=== PATIENT | female | born 1980 | race Two or more races ===

== ENCOUNTER 2016-04-26 15:20 | Outpatient (CLI) | payer MEDICAID | END 2016-04-26 15:21 | disposition home or self-care (01) | DX: R10.2 Pelvic and perineal pain (principal) ==

== ENCOUNTER 2016-10-07 09:24 | Outpatient (CLI) | payer MEDICAID ==
[2016-10-07 14:25] LABS: ALBUMIN/GLOBULIN RATIO 1.3 (1.0-2.2); BILIRUBIN,TOTAL 0.4 mg/dL (0.2-1.0); CALCIUM 9.2 mg/dL (8.5-10.3); CREATININE 0.8 mg/dL (0.4-1.0); POTASSIUM 3.8 mmol/L (3.5-5.0); TOTAL PROTEIN 7.6 g/dL (6.7-8.2)
== END 2016-10-07 09:25 | disposition home or self-care (01) ==
LOC: LAB.N 09:24
PROVIDERS: ATTEND Nurse Practitioner Gerontology
DX: R10.9 Unspecified abdominal pain (principal)
CPT/HCPCS: 36415; 80053

== ENCOUNTER 2016-10-11 10:14 | Outpatient (CLI) | payer MEDICAID ==
[2016-10-11 13:52] LABS: ALBUMIN/GLOBULIN RATIO 1.3 (1.0-2.2); BILIRUBIN,TOTAL 0.6 mg/dL (0.2-1.0); CALCIUM 9.2 mg/dL (8.5-10.3); CREATININE 0.7 mg/dL (0.4-1.0); POTASSIUM 3.4 mmol/L (3.5-5.0); TOTAL PROTEIN 7.6 g/dL (6.7-8.2)
== END 2016-10-11 10:15 | disposition home or self-care (01) ==
LOC: LAB.N 10:14
PROVIDERS: ATTEND Nurse Practitioner Gerontology
DX: R10.9 Unspecified abdominal pain (principal)
CPT/HCPCS: 36415; 80053; 82525

== ENCOUNTER 2016-10-13 08:00 | Outpatient (CLI) | payer MEDICAID | END 2016-10-13 08:01 | disposition home or self-care (01) | LOC: LAB.R 08:00 | PROVIDERS: ATTEND Nurse Practitioner Gerontology | DX: R10.9 Unspecified abdominal pain (principal) | CPT/HCPCS: 81599; 82525 ==

== ENCOUNTER 2016-11-12 01:22 | Emergency (ER) | payer MEDICAID ==
--- NOTE | 2016-11-12 02:10 | XRAY Preliminary Report ---
Exam: XR Chest 2 View PA/LAT IMPRESSION: 1. No acute abnormality seen in the chest. [facility] SITE ID: [id number]
--- NOTE | 2016-11-12 02:13 | XRAY Report ---
EXAM: CHEST RADIOGRAPHY EXAM DATE: 11/12/2016 01:53 AM. CLINICAL HISTORY: Chest pain and shortness of breath. COMPARISON: 11/27/2015. TECHNIQUE: 2 views. FINDINGS: Lungs/Pleura: No alveolar consolidation or pleural effusion. No pneumothorax. Mediastinum: Heart and mediastinal contours are unremarkable. Other: None. IMPRESSION: 1. No acute abnormality seen in the chest. [facility] Referring Provider Line: [phone] SITE ID: [id number]
--- NOTE | 2016-11-12 02:42 | ED Physician Documentation ---
PD HPI CHEST PAIN - Stated complaint Stated Complaint: CHEST PX - Chief complaint Chief Complaint: Resp - History obtained from History obtained from: Patient - History of Present Illness Timing - onset: Yesterday Timing - onset during: Rest Timing - details: Gradual onset, Intermittant Quality: Aching, Sharp Location: Right chest Radiation: Back Worsened by: Palpation, Position. No: Exertion, Inspiration Associated symptoms: Shortness of air. No: Diaphoresis, Nausea, Vomiting, Feeling faint / dizzy, General Weakness, Palpitations Similar symptoms before: Work up / diagnostics Recently seen: Not recently seen - Additional information Additional information: Patient is a 36 year old female with a history of anxiety who is presenting to the emergency department for chest pain. patient states that the pain started yesterday in her right chest. patient states that it radiates back to her right shoulder. Patient states that it gets better with a deep breath, and gets worse in certain positions. patient denies leg swelling, hormone use, or history of blood clots in the past. Review of Systems Constitutional: denies: Fever, Chills Eyes: denies: Decreased vision, Photophobia Ears: denies: Ear pain, Drainage/discharge Nose: denies: Rhinorrhea / runny nose, Congestion Throat: denies: Dental pain / toothache Cardiac: reports: Chest pain / pressure. denies: Palpitations, Pedal edema, Calf pain Respiratory: denies: Dyspnea, Cough, Wheezing GI: denies: Nausea, Vomiting : denies: Dysuria Musculoskeletal: reports: Back pain. 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 : None HEENT: None Psych: Depression, Eating disorder, Other Musculoskeletal: None Derm: None - Past Surgical History Past Surgical History: Yes General: Cholecystectomy, Appendectomy /STOREKEEPER ENGINEERING: section - Present Medications Home Medications: Ambulatory Orders Medication Instructions Recorded Confirmed Albuterol Sulfate [Proair Hfa 1 mcg INH Q6H 11/25/15 03/09/16 Inhaler] Clonidine 0.1 mg PO DAILY 11/25/15 03/09/16 Wellbutrin 300 mg PO DAILY 11/25/15 03/09/16 Hyoscyamine Sulfate [Levsin-Sl] 0.125 mg SL TID #14 tab.subl 03/09/16 Sulfamethoxazole/Trimethoprim 1 each PO BID 7 Days 03/09/16 [Bactrim Ds Tablet] - Allergies Allergies/Adverse Reactions: Allergies Allergy/AdvReac Type Severity Reaction Status Date / Time No Known Drug Allergies Allergy Verified 03/09/16 14:53 - Social History Does the pt smoke?: No Smoking Status: Never smoker Does the pt drink ETOH?: No Does the pt have substance abuse?: No - Immunizations Immunizations are current?: Yes - POLST Patient has POLST: No PD ED PE NORMAL - Vitals Vital signs reviewed: Yes - General General: Alert and oriented X 3, Well developed/nourished - HEENT HEENT: Atraumatic, PERRL - Neck Neck: Supple, no meningeal sign - Cardiac Cardiac: RRR - Respiratory Respiratory: Clear bilaterally - Abdomen Abdomen: Soft, Non tender, Non distended - Derm Derm: Normal color, Warm and dry, No rash - Extremities Extremities: No deformity, No calf tenderness / cord - Neuro Neuro: Alert and oriented X 3, No motor deficit, No sensory deficit, Normal speech PD ED PE EXPANDED - General General: Anxious - Cardiac Cardiac: Chest wall TTP (right chest area) Results - Vitals Vitals: Vital Signs - 24 hr 11/12/16 11/12/16 01:25 01:32 Temperature 37 C Heart Rate 105 H 95 Respiratory 18 Rate Blood Pressure 126/83 H O2 Saturation 98 Oxygen O2 Source Room air - EKG (time done) 0159 Rate: Rate (enter#) (85) Rhythm: NSR [place]: Normal Intervals: Normal [place] Ischemia: Q waves Compare to prior EKG: Unchanged from prior EKG - Labs Labs: Laboratory Tests 11/12/16 02:09 Troponin I < 0.04 - Rads (name of study) chest x-ray Radiology: Final report received (no acute abnormality) PD MEDICAL DECISION MAKING - ED course Complexity details: reviewed old records, reviewed results, re-evaluated patient , considered differential, d/w patient ED course: Patient was seen and examined at bedside. patient was anxious upon presentation , but was able to relax and calm down. ekg was performed and was unchanged from previous. chest x-ray and troponin were negative. Patient had a heart score of 0, and a perc score of 0. Patient's pain was unlikely cardio or pulmonary in origin. Patient required no further work up and was stable for discharge with outpatient follow up. Departure - Departure Disposition: 01 Home, Self Care Clinical Impression: Atypical chest pain Condition: Good Instructions: ED Chest Pain NonCardiac Follow-Up: Rhiannon Kingsley ARNP [Primary Care Provider] - Within 1 week Comments: Your diagnostic today were within normal limits indicating that it is unlikely cardiac in nature. It is more likely musculoskeletal. You can take motrin or tylenol as needed for pain. You should follow up with your pmd if your symptoms persist. You can return to the emergency department at any time for new, worsening or uncontrollable symptoms.
[2016-11-12 02:53] VITALS: BP 105/70
== END 2016-11-12 03:01 | disposition home or self-care (01) ==
LOC: ED 01:22
DX: R07.89 Other chest pain (principal); F41.9 Anxiety disorder, unspecified; J45.909 Unspecified asthma, uncomplicated
CPT/HCPCS: 36415; 71020; 84484; 93005; 99283; 99285

== ENCOUNTER 2018-04-19 17:34 | Emergency (ER) | payer BC, MEDICAID ==
[2018-04-19] MEDS ORDERED: HYDROmorphone 1 MG/ML CARPUJECT IM STA ×2 (17:46→18:40)
--- NOTE | 2018-04-19 17:47 | ED Physician Documentation ---
PD HPI BACK INJURY - Stated complaint Stated Complaint: BACK PX - History obtained from History obtained from: Patient - History of Present Illness Location: Right (She has right-sided low back pain for the last 4-5 days with numbness of the right lateral thigh and lower leg. She denies saddle anesthesia, bowel or bladder incontinence, or fevers. She is never had this before. There was no trauma. 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: section - Present Medications Home Medications: Ambulatory Orders Medication Instructions Recorded Confirmed Albuterol Sulfate [Proair Hfa 1 mcg INH Q6H 11/25/15 03/09/16 Inhaler] Clonidine 0.1 mg PO DAILY 11/25/15 03/09/16 Wellbutrin 300 mg PO DAILY 11/25/15 03/09/16 Hyoscyamine Sulfate [Levsin-Sl] 0.125 mg SL TID #14 tab.subl 03/09/16 Sulfamethoxazole/Trimethoprim 1 each PO BID 7 Days tablet 03/09/16 [Bactrim Ds Tablet] Oxycodone HCl/Acetaminophen 1 - 2 each PO Q6H PRN #14 tablet 04/19/18 [Percocet 5-325 mg Tablet] predniSONE [Deltasone] 20 mg PO [id number] #21 tab 04/19/18 - Allergies Allergies/Adverse Reactions: Allergies Allergy/AdvReac Type Severity Reaction Status Date / Time No Known Drug Allergies Allergy Verified 03/09/16 14:53 - Social History Does the pt smoke?: No Smoking Status: Never smoker Does the pt drink ETOH?: No Does the pt have substance abuse?: No - Immunizations Immunizations are current?: Yes - POLST Patient has POLST: No PD ED PE NORMAL - Vitals Vital signs reviewed: Yes - General General: Alert and oriented X 3, Other (uncomfortable) - Abdomen Abdomen: Soft, Non tender - Back Back: No spinal TTP, Other (Tender in the right sciatic notch with diminished sensation in the right L4/L5 distribution without significant diminution of the patellar reflexes.) - Derm Derm: Normal color, Warm and dry - Neuro Neuro: Alert and oriented X 3, Normal speech Results - Vitals Vitals: Oxygen O2 Source Room air PD MEDICAL DECISION MAKING - ED course ED course: This is a 37-year-old woman with an acute sciatica that clinically is probably related to a right L4/L5 disc herniation. The patient was counseled as to the diagnosis and need for follow-up. I counseled the patient with regard to signs and symptoms that would necessitate an urgent reevaluation in the emergency department. They understand they are welcome to return at any time if worse or if not improving as expected. This document was made in part using voice recognition software. While efforts are made to proofread this documents, sound alike and grammatical errors may occur. Departure - Departure Disposition: 01 Home, Self Care Clinical Impression: Sciatica Qualifiers: Laterality: right Qualified Code(s): M54.31 - Sciatica, right side Condition: Good Record reviewed to determine appropriate education?: Yes Instructions: ED Sciatica Prescriptions: Oxycodone HCl/Acetaminophen [Percocet 5-325 mg Tablet] 1 - 2 each PO Q6H PRN #14 tablet PRN Reason: pain predniSONE [Deltasone] 20 mg PO [id number] #21 tab Comments: Call your doctor to arrange a follow-up appointment, make the next available appointment. In the interim, return anytime if worse or if new symptoms develop. Do not drink or drive while taking narcotic pain medication. Note that many narcotic pain relievers also contain Tylenol/acetaminophen. Please ensure that your total dose of acetaminophen from all sources does not exceed 3 g (3000 mg) per day. You may get constipated while on this medication. Take a stool softener such as Colace twice a day while you are on it. Also add an syai-hnd-sbqxikx laxative such as senna or MiraLAX on any day that you do not have a bowel movement. If you received a narcotic pain medication or sedative while in the emergency department, do not drive for the next 24 hours.
[2018-04-19 18:18] VITALS: BP 130/102
[2018-04-19] MEDS ORDERED: KETOROLAC 60 MG/2 ML VIAL IM STA (18:40)
== END 2018-04-19 19:15 | disposition home or self-care (01) ==
LOC: ED 17:34
DX: M54.41 Lumbago with sciatica, right side (principal)
CPT/HCPCS: 96372; 99283

== ENCOUNTER 2018-04-22 10:43 | Emergency (ER) | payer BC ==
[2018-04-22] MEDS ORDERED: KETOROLAC 30 MG/ML VIAL IVP STA (11:16)
[2018-04-22] MEDS ORDERED: HYDROmorphone 1 MG/ML CARPUJECT IVP STA ×2 (11:16→13:48)
[2018-04-22] MEDS ORDERED: DEXAMETHASONE 10 MG/ML VIAL IVP STA (11:17)
--- NOTE | 2018-04-22 11:24 | ED Physician Documentation ---
PD HPI BACK PAIN - Stated complaint Stated Complaint: RT LEG PX - Chief complaint Chief Complaint: Back Pain - History obtained from History obtained from: Patient - History of Present Illness Timing - onset: How many days ago (5) Timing - duration: Days (5) Timing - details: Gradual onset Pain level max: 10 Pain level now: 10 Location: Lower, Right Quality: Pain, Spasm Associated symptoms: Numbness (tingling to the R LE). No: Fever, Weakness, Incontinent of urine, Unable to urinate, Hematuria, Incontinent of stool Improves with: Rest Worsened by: Movement Contributing factors: No: Lifting, Twisting, Trauma, Anticoagulated, Cancer, IVDA, Out of meds Similar symptoms before: Has not had sx before Recently seen: Emergency Dept ( and urgent care for same) Review of Systems Constitutional: denies: Fever, Chills Cardiac: denies: Chest pain / pressure Respiratory: denies: Cough GI: denies: Vomiting, Diarrhea : denies: Now EGA Skin: denies: Rash Neurologic: denies: Focal weakness PD PAST MEDICAL HISTORY - Past Medical History Past Medical History: Yes Cardiovascular: None Respiratory: Asthma Endocrine/Autoimmune: None GI: None 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 : None HEENT: None Psych: Depression, Eating disorder, Other Musculoskeletal: None Derm: None - Past Surgical History Past Surgical History: Yes General: Cholecystectomy, Appendectomy /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: section - Present Medications Home Medications: Ambulatory Orders Medication Instructions Recorded Confirmed Lisdexamfetamine Dimesylate 0 mg 04/19/18 [Vyvanse] Oxycodone HCl/Acetaminophen 1 - 2 each PO Q6H PRN #14 tablet 04/19/18 [Percocet 5-325 mg Tablet] predniSONE [Deltasone] 20 mg PO [id number] #21 tab 04/19/18 Gabapentin [Neurontin] 300 mg PO TID 04/22/18 04/22/18 HYDROmorphone [Dilaudid] 2 - 4 mg PO Q4H PRN #14 tablet 04/22/18 Meloxicam [Mobic] 15 mg PO DAILY PRN #20 tablet 04/22/18 diazePAM [Valium] 5 - 10 mg PO TID PRN #20 tablet 04/22/18 tiZANidine [Zanaflex] 4 mg 04/22/18 - Allergies Allergies/Adverse Reactions: Allergies Allergy/AdvReac Type Severity Reaction Status Date / Time No Known Drug Allergies Allergy Verified 04/22/18 10:48 - Social History Does the pt smoke?: No Smoking Status: Never smoker Does the pt drink ETOH?: No Does the pt have substance abuse?: No - Immunizations Immunizations are current?: Yes - POLST Patient has POLST: No PD ED PE NORMAL - Vitals Vital signs reviewed: Yes - General General: Alert and oriented X 3, No acute distress - HEENT HEENT: Moist mucous membranes - Neck Neck: Supple, no meningeal sign - Cardiac Cardiac: RRR, Strong equal pulses - Respiratory Respiratory: No respiratory distress, Clear bilaterally - Abdomen Abdomen: Soft, Non tender, Non distended - Back Back: No spinal TTP, Other (No midline tenderness to palpation or percussion. She is tender over the right sacroiliac joint) - Derm Derm: Warm and dry - Extremities Extremities: No deformity, Normal ROM s pain, Other (Normal bilateral lower extremity patellar and ankle jerk reflexes. Normal great toe extension bilaterally. no saddle anesthesia) - Neuro Neuro: Alert and oriented X 3, No motor deficit, Other (Mild decreased sensation along the lateral and posterior aspect of the right leg. No saddle anesthesia) - Psych Psych: Normal mood, Normal affect Results - Vitals Vitals: Vital Signs - 24 hr 04/22/18 04/22/18 04/22/18 10:46 11:55 13:47 Temperature 36.4 C L Heart Rate 98 87 93 Respiratory 20 16 18 Rate Blood Pressure 127/75 115/84 H 128/97 H O2 Saturation 99 98 99 Oxygen O2 Source Room air - Rads (name of study) Lumbar spine x-ray Radiology: Prelim report reviewed, EMP read contemporaneously, See rad report (S1 is a transitional segment. L5-S1 facet neuropathic change. ) PD MEDICAL DECISION MAKING - ED course Complexity details: reviewed results, re-evaluated patient, considered differential (No cauda equina, no spinal epidural abscess, no fracture, no aortic dissection or evidence of aneursym rupture), d/w patient, d/w family ED course: 37-year-old female with right low back pain, apparently secondary to facet neuropathic change. Pain well controlled in the emergency department. Given steroids as she had not taken her prednisone at home. Also given a dose of Valium and Dilaudid. Able to ambulate in the emergency department. We will continue her steroid taper at home as well as prescribe anti-inflammatories and will change her from oxycodone to hydromorphone. We will have her follow-up with her doctor for further care and likely referral to spine/pain specialist. Would likely benefit from spinal injections. Patient counseled regarding signs and symptoms for which I believe and urgent re-evaluation would be necessary. Patient with good understanding of and agreement to plan and is comfortable going home at this time This document was made in part using voice recognition software. While efforts are made to proofread this document, sound alike and grammatical errors may occur. Departure - Departure Disposition: Home, Self Care Clinical Impression: Facet arthropathy, lumbar Sciatica Qualifiers: Laterality: right Qualified Code(s): M54.31 - Sciatica, right side Condition: Good Instructions: Injection Facet Joint, ED Sciatica Follow-Up: Rhiannon Kingsley ARNP [Primary Care Provider] - Within 1 week Prescriptions: diazePAM [Valium] 5 - 10 mg PO TID PRN #20 tablet PRN Reason: Spasms HYDROmorphone [Dilaudid] 2 - 4 mg PO Q4H PRN #14 tablet PRN Reason: back pain Meloxicam [Mobic] 15 mg PO DAILY PRN #20 tablet PRN Reason: pain Comments: Continue the gabapentin and prednisone at home. Return if you worsen. Follow- up with your doctor for further care. Do not drink alcohol or drive while on narcotic pain medicine. Note that many narcotic pain relievers also contain tylenol/acetaminophen. Please ensure that your total dose of acetaminophen from all sources does not exceed 3 grams (3000mg) per day. You may constipated on this medication, take a stool softener such as "Colace" twice a day while you are on it. Also recommend a ddzl-gxd-qsrgqnf laxative such as senna or MiraLAX any day that you do not have a bowel movement. If you received narcotic pain medication in the emergency department, do not drive or operate machinery for the next 24 hours. Forms: Activity restrictions Discharge Date/Time: 04/22/18 14:20
[2018-04-22] MEDS ORDERED: diazePAM 5 MG TABLET PO STA (12:07)
--- NOTE | 2018-04-22 13:20 | XRAY Report ---
Reason: low back pain Procedure Date: 04/22/2018 Accession Number: [id number] / [id number] Procedure: XR - Lumbar Spine 2 View CPT Code: FULL RESULT: EXAM: LUMBOSACRAL SPINE RADIOGRAPHY EXAM DATE: 04/22/2018 01:07 PM. CLINICAL HISTORY: Low back pain. COMPARISONS: None. TECHNIQUE: 3 views. FINDINGS: Alignment: Normal. No spondylolisthesis or scoliosis. Bones: Five hfp-vgw-afhubid lumbar vertebral bodies are present. No fractures or bone lesions. S1 is a transitional segment. Disks: Normal. Disk heights are maintained. Facets: L2-S1 facet arthropathic change. Sacroiliac Joints: Unremarkable. Soft Tissues: Normal. The visualized bowel gas pattern is normal. IMPRESSION: 1. S1 is a transitional segment. L2-S1 facet neuropathic change. [facility]
[2018-04-22 13:49] VITALS: BP 128/97
== END 2018-04-22 14:20 | disposition home or self-care (01) ==
LOC: ED 10:43
DX: M12.88 Other specific arthropathies, not elsewhere classified, other specified site (principal); M54.31 Sciatica, right side
CPT/HCPCS: 72100; 96374; 96376; 99283; A9270; J1170

== ENCOUNTER 2022-01-04 14:29 | Outpatient (CLI) | payer MEDICAID ==
[2022-01-04 12:56] LABS: BILIRUBIN,URINE NEGATIVE (NEGATIVE); GLUCOSE, URINE (UA) NEGATIVE (NEGATIVE); KETONES,URINE (UA) NEGATIVE (NEGATIVE); LEUKOCYTE ESTERASE, URINE NEGATIVE (NEGATIVE); NITRITE,URINE NEGATIVE (NEGATIVE); OCCULT BLOOD,URINE SMALL (NEGATIVE); PH,URINE 6.5 PH (5.0-7.5); PROTEIN,URINE NEGATIVE (NEGATIVE); UROBILINOGEN,URINE 0.2 (NORMAL) E.U./dL (NORMAL)
[2022-01-04 12:59] LABS: CLARITY,URINE HAZY (CLEAR)
[2022-01-04 13:06] LABS: BACTERIA,URINE Few /HPF (None Seen); RBC,URINE 0-5 /HPF (0-5); SQUAMOUS EPITHELIAL CELL,UR MOD Squamous (<= Few); WBC,URINE 0-3 /HPF (0-5)
--- NOTE | 2022-01-04 17:53 | CT Report ---
PROCEDURE: Abdomen/Pelvis WO INDICATIONS: RIGHT FLANK PAIN TECHNIQUE: Noncontrast 5 mm thick sections acquired from the diaphragms to the symphysis. 5 mm coronal and sagi ttal reformats were then performed. For radiation dose reduction, the following was used: automated exposure control, adjustment of mA and/or kV according to patient size. COMPARISON: None. FINDINGS: Image quality: Excellent. ABDOMEN: Lung bases: Lung bases are clear. Heart size is normal. Solid organs: Liver and spleen are normal in size. Gallbladder is absent. Pancreas is normal in co ntours. No adrenal nodules. Kidneys are normal in size, without hydronephrosis or nephrolithiasis. Peritoneum and bowel: No small bowel obstruction. Prominent stool in the proximal and transverse colo n. The appendix is not identified. No free fluid or air. Nodes and vessels: No retroperitoneal or mesenteric adenopathy by size criteria. Aorta and inferior vena cava are normal in caliber. Miscellaneous: No ventral hernias. PELVIS: Genitourinary: No bladder stones. Suspect right ovarian cyst measuring approximately 3.7 cm, (). Miscellaneous: No inguinal hernias or adenopathy. Bones: No suspicious bony lesions. No vertebral body compression fractures. L4-L5 pedicle screws w ith intervertebral body spacer. Laminectomy. IMPRESSION: 1. No kidney stones. No hydronephrosis. 2. Prominent stool in the right colon and transverse colon. This could be due to constipation. 3. Suspect right ovarian cyst. -Consider further evaluation with pelvic ultrasound . Reviewed by: Joey Harris MD on 01/04/2022 5:52 PM PDT Approved by: Joey Harris MD on 01/04/2022 5:52 PM PDT Station ID: [id number]
== END 2022-01-04 14:30 | disposition home or self-care (01) ==
LOC: DI 14:29
PROVIDERS: ATTEND Physician Assistant
DX: R10.9 Unspecified abdominal pain (principal)
CPT/HCPCS: 81001; 87086

== ENCOUNTER 2022-07-17 08:00 | Outpatient (CLI) | payer MEDICAID | END 2022-07-17 23:59 | disposition home or self-care (01) | LOC: LAB.N 08:00 | PROVIDERS: ATTEND Nurse Practitioner | DX: N39.0 Urinary tract infection, site not specified (principal) | CPT/HCPCS: 87086; 87181 ==

== ENCOUNTER 2022-08-16 16:28 | Emergency (ER) | payer MEDICAID ==
--- NOTE | 2022-08-16 16:55 | ED Physician Documentation ---
PD HPI BACK PAIN - Stated complaint Stated Complaint: BACK PX - Chief complaint Chief Complaint: Back Pain - History obtained from History obtained from: Patient - Additional information Additional information: 41-year-old woman has a history of back problems, about 4 years ago had a L5-S1 discectomies followed by a spinal fusion. Yesterday she coughed and felt sudden pain in her low back. It radiated in the buttocks but no further. She denies weakness, numbness, tingling, saddle anesthesia, incontinence, or fevers. She tried Tylenol and ibuprofen which did not help. She feels better laying on either side but not on her back or upright or walking. PD PAST MEDICAL HISTORY - Past Medical History Cardiovascular: None Respiratory: Asthma Endocrine/Autoimmune: None GI: None CERTIFIED FIRST ASSISTANT: None : None HEENT: None Psych: Depression, Eating disorder, Other Musculoskeletal: None Derm: None - Past Surgical History Past Surgical History: Yes General: Cholecystectomy, Appendectomy /CERTIFIED FIRST ASSISTANT: section - Present Medications Home Medications: Ambulatory Orders Medication Instructions Recorded Confirmed Cyclobenzaprine [Flexeril] 10 mg PO TID PRN #20 tablet 08/16/22 Gabapentin [Neurontin] 400 mg ORAL TID 08/16/22 08/16/22 Ibuprofen [Motrin] 600 mg PO Q6H PRN #30 tab 08/16/22 Lisdexamfetamine Dimesylate 70 mg ORAL DAILY 08/16/22 08/16/22 [Vyvanse] Oxycodone HCl/Acetaminophen 1 - 2 each PO Q6H PRN #14 tablet 08/16/22 [Percocet 5-325 mg Tablet] cloNIDine [Catapres] 0.1 - 0.2 mg PO HS PRN 08/16/22 08/16/22 - Allergies Allergies/Adverse Reactions: Allergies Allergy/AdvReac Type Severity Reaction Status Date / Time No Known Drug Allergies Allergy Verified 04/22/18 10:48 - Social History Does the pt smoke?: No Smoking Status: Never smoker Does the pt drink ETOH?: No Does the pt have substance abuse?: No - Immunizations Immunizations are current?: Yes - POLST Patient has POLST: No PD ED PE NORMAL - Vitals Vital signs reviewed: Yes - General General: Alert and oriented X 3, Other (Appears uncomfortable) - Back Back: Other (Tender to the low L-spine) - Derm Derm: Normal color, Warm and dry - Extremities Extremities: Other (The patient has equal and normal Achilles and patellar reflexes bilaterally. Normal sensation in all areas of the legs. Patient denies saddle anesthesia. Normal strength in flexion-extension at the ankles, knees, and flexion of the hips.) - Neuro Neuro: Alert and oriented X 3, Other (Gait is normal albeit labored due to pain) Eye Opening: Spontaneous Motor: Obeys Commands Verbal: Oriented GCS Score: 15 Results - Vitals Vitals: Vital Signs - 24 hr 08/16/22 08/16/22 08/16/22 16:39 17:12 18:09 Temperature 36.4 C L Heart Rate 125 H 92 102 H Respiratory 18 18 18 Rate Blood Pressure 139/100 H 108/72 108/72 O2 Saturation 100 100 98 Oxygen O2 Source Room air PD Medical Decision Making - ED course ED course: This patient has seemingly uncomplicated musculoskeletal back pain. The patient has no "red flags." Specifically denies IV drug use, fevers, incontinence, saddle anesthesia. Spinal epidural abscess was considered, given that the stephanie vasquez has no fever, is not diabetic, has no spinal tenderness, does not use IV drugs, and has no bilateral neurologic symptoms, the diagnosis of spinal epidural abscess is considered exceedingly unlikely. She was administered 2 mg of IM Dilaudid and 60 mg of IM Toradol with very good pain relief but needed a bit more and this was followed by 1 mg of IM Dilaudid and 1 mg of IM Ativan. Discussed need for follow-up for further evaluation and treatment as well as return precautions. Departure - Departure Disposition: 01 Home, Self Care Clinical Impression: Back pain Qualifiers: Back pain location: low back pain Chronicity: acute Back pain laterality: midline Sciatica presence: without sciatica Qualified Code(s): M54.50 - Low back pain, unspecified Condition: Good Record reviewed to determine appropriate education?: Yes Instructions: ED Neck Back Pain General Prescriptions: Cyclobenzaprine [Flexeril] 10 mg PO TID PRN #20 tablet PRN Reason: Spasms Ibuprofen [Motrin] 600 mg PO Q6H PRN #30 tab PRN Reason: Pain Oxycodone HCl/Acetaminophen [Percocet 5-325 mg Tablet] 1 - 2 each PO Q6H PRN #14 tablet PRN Reason: pain Comments: You were seen today for back pain. There is a significant possibility of herniated disc given your history. You should follow-up with your primary care physician for further evaluation and treatment. I sent your prescriptions [facility] to [facility] in [place]. Return for new or worsening symptoms. Especially if you develop numbness around your groin, bowel or bladder incontinence, or fevers. I am prescribing a short course of narcotic pain medication for you. These are potentially dangerous and addictive medications that should be used carefully. These medications may constipate you. Take an kluj-bjb-xqyejbs stool softener (docusate) twice daily with plenty of water while taking these medications. If you go 24 hours without a bowel movement, take ysno-ldp-vzijnkm miralax, per package instructions. Do not drink or drive while taking these medications. If you received narcotic or sedating medications while in the emergency department, do not drive for 24 hours. Store this medication in a safe, secure place and out of reach of children. It is a violation of federal law to give or sell this medication to another person or to use in a manner other than prescribed. The ED will not refill narcotic prescriptions, including prescriptions lost or stolen. To dispose of unwanted medications: 1. [facility] [address] [facility] [place] has a medication drop box. They accept prescription medications (in pill form) Tuesday through Tuesday 9:00 a.m. to 5:00 p.m. 2. The [facility] [employer] accepts prescription medications (in pill form only) for disposal year round. Call for more information. 3. Contact the [facility] for the next [facility] sponsored prescription drug collection event. , [phone], or [phone]; Note that many narcotic pain relievers also contain Tylenol/acetaminophen. Please ensure that your total dose of acetaminophen from all sources does not exceed 3 g (3000 mg) per day. Forms: Activity restrictions
[2022-08-16] MEDS: KETOROLAC 60 MG/2 ML VIAL IM STA (17:12)
[2022-08-16] MEDS: HYDROmorphone 1 MG/ML CARPUJECT IM STA ×2 (17:12→18:09)
[2022-08-16 17:13] VITALS: BP 108/72
[2022-08-16] MEDS: LORazepam 2 MG/ML VIAL IM STA (18:09)
[2022-08-16] MEDS: ONDANSETRON ODT 4 MG TABLET TL STA (18:35)
== END 2022-08-16 18:35 | disposition home or self-care (01) ==
LOC: ED 16:28
DX: M54.50 Low back pain, unspecified (principal)
CPT/HCPCS: 96372; 99283; J1170; J2060; Q0162

== ENCOUNTER 2022-08-20 11:03 | Outpatient (CLI) | payer MEDICAID ==
--- NOTE | 2022-08-20 12:13 | XRAY Report ---
PROCEDURE: Lumbar Spine Complete INDICATIONS: LUMBAR SPINAL FUSION TECHNIQUE: 4 views of the lumbar spine were acquired. COMPARISON: 04/22/2019 FINDINGS: Bones: 5 ruu-yre-iqzhxvd vertebrae are present. There is normal bony alignment. No vertebral body compression fractures. No suspicious bony lesions. Posterior and interbody surgical fusion L5-S1, w ithout hardware complication. Moderate disc height loss at L4-5. Mild disc height loss at L2-3. No ab normal motion with flexion or extension. Soft tissues: Overlying bowel gas pattern is normal. No suspicious soft tissue calcifications. IMPRESSION: Mild to moderate, multilevel degenerative disease, as above. Surgical fusion at L5-S1, without abnormal motion with flexion or extension. Reviewed by: Ken Vilchis on 08/20/2022 12:12 PM PDT Approved by: Ken Vilchis on 08/20/2022 12:12 PM PDT Station ID: [id number]
== END 2022-08-20 11:04 | disposition home or self-care (01) ==
LOC: DI 11:03
PROVIDERS: ATTEND Internal Medicine
DX: Z98.1 Arthrodesis status (principal); M51.36 Other intervertebral disc degeneration, lumbar region

== ENCOUNTER 2022-10-05 14:39 | Outpatient (CLI) | payer MEDICAID ==
[2022-10-05 18:01] LABS: BASOPHILS % (AUTO) 0.2 %; EOSINOPHILS # (AUTO) 0.2 10^3/uL (0.0-0.7); HCT - HEMATOCRIT 35.8 % (37.0-47.0); HGB - HEMOGLOBIN 11.1 g/dL (12.0-16.0); LYMPHOCYTES # (AUTO) 1.8 10^3/uL (1.5-3.5); LYMPHOCYTES % (AUTO) 40.3 %; MEAN CORPUSCULAR HEMOGLOBIN 24.2 pg (27.0-31.0); MEAN PLATELET VOLUME 11.7 fL (7.9-10.8); MONOCYTES # (AUTO) 0.3 10^3/uL (0.0-1.0); MONOCYTES % (AUTO) 6.4 %; NEUTROPHILS # (AUTO) 2.2 10^3/uL (1.5-6.6); NEUTROPHILS % (AUTO) 48.9 %; PLT - PLATELET COUNT 277 10^3/uL (130-450); RED BLOOD COUNT 4.59 10^6/uL (4.20-5.40); RED CELL DISTRIBUTION WIDTH 14.9 % (12.0-15.0); WHITE BLOOD COUNT 4.5 x10^3/uL (4.8-10.8)
[2022-10-05 18:17] LABS: THYROID STIMULATING HORMONE 1.51 uIU/mL (0.34-5.60)
[2022-10-05 20:43] LABS: ALBUMIN 4.2 g/dL (3.2-5.5); ALBUMIN/GLOBULIN RATIO 1.1 (1.0-2.2); ALKALINE PHOSPHATASE 47 IU/L (42-121); ALT ALANINE AMINOTRANSFERASE 13 IU/L (10-60); AST ASPARTATE AMINOTRANSFERASE 19 IU/L (10-42); BILIRUBIN,TOTAL 0.4 mg/dL (0.2-1.0); BUN - BLOOD UREA NITROGEN 8 mg/dL (6-20); CALCIUM 9.1 mg/dL (8.5-10.3); CARBON DIOXIDE - CO2 28 mmol/L (21-32); CHLORIDE 104 mmol/L (101-111); CHOL/HDL RATIO 2.5 (<4.4); CHOLESTEROL 176 mg/dL; CREATININE 0.6 mg/dL (0.4-1.0); GFR - MDRD 111 (>89); GLUCOSE 94 mg/dL (70-100); HDL CHOLESTEROL 70 mg/dL; LDL CHOLESTEROL,CALCULATED 91 mg/dL; LDL/HDL RATIO 1.3 (<4.4); POTASSIUM 3.9 mmol/L (3.5-5.0); SODIUM 140 mmol/L (135-145); TRIGLYCERIDES 76 mg/dL; VLDL CHOLESTEROL 15 mg/dL
== END 2022-10-05 14:40 | disposition home or self-care (01) ==
LOC: LAB.N 14:39
PROVIDERS: ATTEND Physician Assistant
DX: Z51.81 Encounter for therapeutic drug level monitoring (principal); Z13.220 Encounter for screening for lipoid disorders; Z13.29 Encounter for screening for other suspected endocrine disorder
CPT/HCPCS: 36415; 80053; 80061; 83721; 84443; 85025

== ENCOUNTER 2022-11-17 15:32 | Outpatient (CLI) | payer MEDICAID ==
--- NOTE | 2022-11-17 19:53 | MRI Report ---
PROCEDURE: LUMBAR SPINE W/WO INDICATIONS: LUMBAR SPINE FUSION CONTRAST: gadavist 7.3ml TECHNIQUE: Noncontrast sagittal T1 spin echo and T2 fast spin echo, sagittal STIR, axial T1 and T2 fast spin ech o through the lumbar spine. In cases with scoliosis, additional coronal T2 fast spin echo may be per formed. After the administration of contrast, sagittal and axial T1 spin echo with fat saturation th rough the lumbar spine. COMPARISON: Correlation is made with lumbar plain films, 08/20/2022. Correlation is also made with annette or abdominal and pelvis CT, 01/04/2022. FINDINGS: Image quality: Excellent. Alignment and curvature: There is normal bony alignment. Marrow: Marrow is of normal overall signal. No acute vertebral body compression fractures. No susp icious marrow enhancement. Spinal cord: Conus medullaris terminates at the L1 level. Visualized spinal cord demonstrates jaron l signal, without suspicious enhancement. Paraspinous soft tissues: No paravertebral masses or abnormal enhancement. This patient has transitional anatomy. For the purposes of this examination, the level with the disc fusion is considered to be L5-S1. This numbering scheme is chosen to remain consistent with the 023 plain film. Please note that the films by [address] report dated 01/04/2022. T12-L1: Normal in appearance. L1-L2: Normal in appearance. L2-L3: Mild to moderate loss of disc height and disc signal can be seen. Mild disc bulge is seen. A superimposed central disc protrusion is seen. No significant neuroforaminal narrowing can be see n. Mild central canal narrowing is seen. L3-L4: Normal in appearance. L4-L5: Mild loss of disc height and disc signal are seen. Mild to moderate disc bulge is seen, with a central disc protrusion. Note is made of a faintly seen annular fissure posteriorly. Mild to mod erate disc bulge is seen, with a mild central disc protrusion. There is moderate left-sided and at le ast moderate right-sided neuroforaminal narrowing. Mild to moderate central canal narrowing can be se en. L5-S1: Postoperative changes are seen at this level, with bilateral pedicle screws and a disc space r. There has been removal of portions of the posterior elements. Mild disc bulge is seen. Moderate facet hypertrophy is seen. No neural foraminal narrowing is seen. The central canal is widely patent . S1-S2: A transitional, rudimentary disc is seen at this level. IMPRESSION: Unremarkable L5-S1 postoperative hardware. Degenerative changes are seen, which are overall worst at the L5 or L5 level. There is transitional anatomy noted. Reviewed by: Abdiaziz Cardenas MD on 11/17/2022 6:52 PM AKDT Approved by: Abdiaziz Cardenas MD on 11/17/2022 6:52 PM AKDT Station ID: [id number]
== END 2022-11-17 15:33 | disposition home or self-care (01) ==
LOC: DI 15:32
PROVIDERS: ATTEND Physician Assistant
DX: M51.26 Other intervertebral disc displacement, lumbar region (principal); M51.36 Other intervertebral disc degeneration, lumbar region; M48.061 Spinal stenosis, lumbar region without neurogenic claudication; M47.817 Spondylosis without myelopathy or radiculopathy, lumbosacral region; Z98.1 Arthrodesis status
CPT/HCPCS: 72158; A9585

== ENCOUNTER 2023-08-17 12:17 | Emergency (ER) | payer OTHER, MEDICAID ==
--- NOTE | 2023-08-17 13:37 | ED Physician Documentation ---
PD HPI BACK PAIN - Stated complaint Stated Complaint: RT LEG PX - Chief complaint Chief Complaint: Ext Problem - History obtained from History obtained from: Patient - History of Present Illness Timing - onset: How many days ago (has had increased back pain over baseline for dasy to weeks, without new areas of weakness. Has however now had singificant muscle spasms of both lower legs the past few days, and considerably more painful today.) Timing - details: Gradual onset, Still present, Waxing and waning Location: Lower Quality: Similar to prior episodes Associated symptoms: No: Fever, Weakness, Numbness, Incontinent of urine Improves with: Rest. No: Meds (taking Rx home meds without improvement.) Worsened by: Movement Contributing factors: No: Out of meds Review of Systems Constitutional: denies: Fever, Chills Nose: denies: Rhinorrhea / runny nose, Congestion Throat: denies: Sore throat Respiratory: denies: Cough GI: denies: Abdominal Pain Skin: denies: Rash, Lesions Musculoskeletal: reports: Back pain, Other (muscle spasms in legs) Neurologic: denies: Focal weakness, Numbness PD PAST MEDICAL HISTORY - Past Medical History Past Medical History: Yes Cardiovascular: None Respiratory: Asthma Neuro: None Endocrine/Autoimmune: None GI: None ASSISTANT PRINCIPAL: None : None HEENT: None Psych: Depression, Eating disorder, Other Musculoskeletal: None Derm: None - Past Surgical History Past Surgical History: Yes General: Cholecystectomy, Appendectomy Ortho: Spine surgery /ASSISTANT PRINCIPAL: section - Present Medications Home Medications: Ambulatory Orders Medication Instructions Recorded Confirmed Cyclobenzaprine [Flexeril] 10 mg PO TID PRN #20 tablet 08/16/22 08/17/23 Gabapentin [Neurontin] 400 mg ORAL TID 08/16/22 08/16/22 Ibuprofen [Motrin] 600 mg PO Q6H PRN #30 tab 08/16/22 08/17/23 Lisdexamfetamine Dimesylate 70 mg ORAL DAILY 08/16/22 08/16/22 [Vyvanse] cloNIDine [Catapres] 0.1 - 0.2 mg PO HS PRN 08/16/22 08/16/22 Magnesium Oxide [Mag Ox] 400 mg PO BID #30 tablet 08/17/23 Meloxicam [Mobic] 7.5 mg PO BID 10 Days #20 tablet 08/17/23 Oxycodone HCl/Acetaminophen 1 each PO Q6HR PRN #18 tablet 08/17/23 [Percocet 7.5-325 mg Tablet] diazePAM [Valium] 5 mg PO TID PRN #20 tablet 08/17/23 - Allergies Allergies/Adverse Reactions: Allergies Allergy/AdvReac Type Severity Reaction Status Date / Time No Known Drug Allergies Allergy Verified 08/17/23 12:25 - Social History Does the pt smoke?: No Smoking Status: Never smoker Does the pt drink ETOH?: No Does the pt have substance abuse?: No - Immunizations Immunizations are current?: Yes - POLST Patient has POLST: No PD ED PE NORMAL - Vitals Vital signs reviewed: Yes - General General: Alert and oriented X 3, Well developed/nourished, Other (appearing in considerable pain due to leg cramps. ) - Extremities Extremities: Other (visible and palpable very firm muscle spasms of lateral portion right lower leg, c/w peroneal muscle. Eversion of foot and is painful to pt. ) - Neuro Neuro: Alert and oriented X 3, No motor deficit, No sensory deficit, Normal speech Results - Vitals Vitals: Oxygen O2 Source Room air - Labs Labs: Laboratory Tests 08/17/23 14:04 Sodium 136 Potassium 4.0 Chloride 104 Carbon Dioxide 23 Anion Gap 9.0 BUN 8 Creatinine 0.8 Estimated GFR (MDRD) 79 L Glucose 108 H Calcium 10.1 Phosphorus 2.6 Magnesium 1.8 Total Bilirubin 0.5 AST 23 ALT 14 Alkaline Phosphatase 72 Total Creatine Kinase 147 Total Protein 8.6 Albumin 4.9 Globulin 3.7 Albumin/Globulin Ratio 1.3 Lipase 13 PD Medical Decision Making - ED course Complexity details: reviewed results (main lytes are WNL, though Mag at 1.8 could be more effectively higher. Given Mag IV here in ED as is also muscle relaxant. Seemed to correlate with some improvement. ), re-evaluated patient (p ain less with IV dilaudid and toradol. However still spasms at times. Given IV diazepam and more pain meds with better improvement. ), considered differential (clinically evident severe muscle spasms right lateral muscle. I firmly held the muscle and gentle firm massage led to stopping of that spasm. Other leg started spasm soom after though. ), d/w patient Departure - Departure Disposition: Home, Self Care Clinical Impression: Leg muscle spasm, Acute exacerbation of chronic low back pain Condition: Stable Record reviewed to determine appropriate education?: Yes Instructions: ED Spasm Muscle Follow-Up: Mara Brantley PA [Primary Care Provider] - Prescriptions: Oxycodone HCl/Acetaminophen [Percocet 7.5-325 mg Tablet] 1 each PO Q6HR PRN #18 tablet PRN Reason: Pain 5-7 Magnesium Oxide [Mag Ox] 400 mg PO BID #30 tablet Meloxicam [Mobic] 7.5 mg PO BID 10 Days #20 tablet diazePAM [Valium] 5 mg PO TID PRN #20 tablet PRN Reason: Spasms Comments: You are having pretty significant muscle spasms in the legs. The coloration of your skin and no swelling there would suggest not a vascular deficit or problem. There can be unusual spasms related to nerve irritation this will be most likely the cause for you. However muscle spasms can be augmented by under hydration and also electrolytes abnormality. We did check your blood tests and your electrolytes are all in the normal range though the magnesium is on the lower end of normal and is often useful in reducing spasms. As such I would suggest adding a magnesium supplement twice daily for the next week or 2. Stay well-hydrated otherwise. Continue usual medications. You state you have not had any recent change in your doses so I do not think medications are contributing to the increase spasms. For your back pain as well as leg pain and spasms, a combination of some anti- inflammatories can be helpful along with added muscle relaxant. You can continue usual medicine. Add diazepam every 6 hours if needed for worse spasms. This would be intended short-term. To this I will add Percocet every 6 hours if needed for increased pain. I wrote her prescription also intended short-term for this increased pains over baseline. I sent new prescriptions to preferred pharmacy. I am prescribing a short course of narcotic pain medication for you. These are potentially dangerous and addictive medications that should be used carefully. These medications may constipate you. Take an xaub-hms-xjczemr stool softener such as docusate twice daily with plenty of water while taking these medications. If you go 24 hours without a bowel movement, take rsde-jxw-jpwicck MiraLAX, per package instructions. Do not drink or drive while taking these medications. If you received narcotic or sedating medications while in the emergency department do not drive for 24 hours. Store this medication in a safe, secure place and out of reach of children. It is a violation of federal law to give or sell this medication to another person or to use in a manner other than prescribed. The ED will not refill narcotic prescriptions, including prescriptions lost or stolen. You can dispose of unwanted medications at the [facility]'s office or at several pharmacies such as [facility]. Forms: PCP List Discharge Date/Time: 08/17/23 18:26
[2023-08-17] MEDS: KETOROLAC 30 MG/ML VIAL IM STA (14:14)
[2023-08-17] MEDS: HYDROmorphone 1 MG/ML CARPUJECT IM STA (14:14)
[2023-08-17 14:25] LABS: ALBUMIN 4.9 g/dL (3.2-5.5); ALBUMIN/GLOBULIN RATIO 1.3 (1.0-2.2); BILIRUBIN,TOTAL 0.5 mg/dL (0.2-1.0); CALCIUM 10.1 mg/dL (8.5-10.3); CREATININE 0.8 mg/dL (0.6-1.3); MAGNESIUM 1.8 mg/dL (1.7-2.3); PHOSPHORUS 2.6 mg/dL (2.5-5.0); TOTAL PROTEIN 8.6 g/dL (6.4-8.9)
[2023-08-17] MEDS: SODIUM CHLORIDE 0.9% 1,000 ML IV STA (15:56)
[2023-08-17] MEDS: MAGNESIUM SULFATE 2 GRAM 2 GM/50 ML BAG IV ONE (15:57)
[2023-08-17] MEDS: diazePAM INJ 5 MG/ML SYRINGE IVP STA (15:57)
[2023-08-17] MEDS: HYDROmorphone 1 MG/ML CARPUJECT IVP STA ×2 (15:57→17:38)
[2023-08-17] MEDS: KETOROLAC 15 MG/ML VIAL IVP STA (17:38)
[2023-08-17 18:28] VITALS: BP 132/87; O2SAT 99
== END 2023-08-17 18:26 | disposition home or self-care (01) ==
LOC: ED 12:17
DX: M54.50 Low back pain, unspecified (principal); G89.29 Other chronic pain; M62.838 Other muscle spasm; Z79.899 Other long term (current) drug therapy
CPT/HCPCS: 36415; 80053; 82550; 83690; 83735; 84100; 96365; 96372; 96375; 99284; 99285; J1170

== ENCOUNTER 2023-08-26 18:00 | Outpatient (CLI) | payer OTHER, MEDICAID ==
--- NOTE | 2023-08-28 19:13 | XRAY Report ---
PROCEDURE: Ankle 3+V RT INDICATIONS: SPRAIN OF OTHER LIGAMENT OF RIGHT ANKLE TECHNIQUE: 3 views of the ankle were acquired. COMPARISON: Same day left ankle radiograph. FINDINGS: Bones: No fractures or dislocations. Ankle mortise is normally aligned on non weightbearing view. No suspicious bony lesions. Soft tissues: No tibiotalar joint effusion. Achilles tendon appears normal. Soft tissue swelling a bout the ankle. IMPRESSION: No acute bony abnormality. If there remains a high clinical concern for fracture, consider cross-sect ional imaging now. If pain persists, consider repeat x-ray in 10-14 days or cross-sectional imaging. Reviewed by: Lissy March MD on 08/28/2023 7:12 PM PDT Approved by: Lissy March MD on 08/28/2023 7:12 PM PDT Station ID: [id number]
--- NOTE | 2023-08-28 19:13 | XRAY Report ---
PROCEDURE: Ankle 3+V LT INDICATIONS: SPRAIN OF OTHER LIGAMENT OF LEFT ANKLE TECHNIQUE: 3 views of the ankle were acquired. COMPARISON: Same day right ankle radiograph. FINDINGS: Bones: No fractures or dislocations. Ankle mortise is normally aligned on non weightbearing view. No suspicious bony lesions. Soft tissues: No tibiotalar joint effusion. Achilles tendon appears normal. Soft tissue swelling a bout the ankle. IMPRESSION: No acute bony abnormality. If there remains a high clinical concern for fracture, consider cross-sect ional imaging now. If pain persists, consider repeat x-ray in 10-14 days or cross-sectional imaging. Reviewed by: Lissy March MD on 08/28/2023 7:12 PM PDT Approved by: Lissy March MD on 08/28/2023 7:12 PM PDT Station ID: [id number]
== END 2023-08-26 18:01 | disposition home or self-care (01) ==
LOC: DI 18:00
PROVIDERS: ATTEND Family Medicine
DX: S93.491A Sprain of other ligament of right ankle, initial encounter (principal); S93.492A Sprain of other ligament of left ankle, initial encounter

== ENCOUNTER 2023-09-05 09:24 | Outpatient (CLI) | payer OTHER, MEDICAID ==
--- NOTE | 2023-09-06 10:18 | Ultrasound Report ---
LIMITED ULTRASOUND OF LEFT BREAST AND AXILLA: 09/05/2023 CLINICAL: Palpable left breast lump. Comparison is made to exam dated: 09/05/2023 mammogram - [facility]. Color flow and real-time ultrasound of the left breast 9 o'clock, and axilla regions were performed. Roper scale images of the real-time examination were reviewed. There is a 2.2 cm x 1.4 cm x 1.3 cm mass with a microlobulated margin in the left breast at 9 o'clock anterior depth 6 cm from the nipple. This correlates as palpated and with mammography findings. Co seven flow imaging demonstrates that there is vascularity present. No significant abnormalities were seen sonographically in the left axilla. IMPRESSION: SUSPICIOUS OF MALIGNANCY The 2.2 cm x 1.4 cm x 1.3 cm mass in the left breast is at a moderate suspicion for malignancy. An ultrasound guided biopsy is recommended. No enlarged left axillary lymph nodes. Exam findings were discussed with the patient by Dr. Coto. This exam was interpreted at Station ID: [id number]. Electronically Signed By: Joey Harris M.D. slc/:09/05/2023 11:08:50 Ultrasound BI-RADS: 4b Moderate suspicion of malignancy BI-RADS CATEGORY: (4b) - Mod Susp Biopsy [id number] Immediate follow-up LATERALITY: (L)
--- NOTE | 2023-09-06 10:18 | Mammography Report ---
BILATERAL DIGITAL DIAGNOSTIC MAMMOGRAM 3D/2D WITH SPOT COMPRESSION: 09/05/2023 CLINICAL: Palpable left breast lump. Baseline exam. No prior exams were available for comparison. CTA chest 02/15/2016. Both breasts are heterogeneously dense, which may obscure small masses (category c / 51-75% glandular tissue). There is an oval mass in the left breast at 9 o'clock anterior depth. This correlates as palpated. No other significant masses, calcifications, or other findings are seen in either breast. IMPRESSION: INCOMPLETE: NEEDS ADDITIONAL IMAGING EVALUATION The oval mass in the left breast is indeterminate. A targeted ultrasound is recommended and will immediately follow. Based on the Tyrer Cuzick model (a risk assessment model) the patient's lifetime risk is 12.6% and he r 10 year risk is 1.7%. According to the ACR, ACS, and NCCN guidelines, an annual breast MRI exam bubba ng with mammogram is recommended if the patient's lifetime risk is 20% or greater. This exam was interpreted at Station ID: [id number]. NOTE: For mammograms, a report in lay terms will be sent to the patient. Approximately 15% of breast malignancies will not be visualized mammographically. In the management of a palpable breast mass, a negative mammogram must not discourage biopsy of a clinically suspicious lesion. Electronically Signed By: Joey Harris M.D. slc/:09/05/2023 11:30:00 Entry: ka - 09/06/2023 10:01:14 ACR BI-RADS Category 0: Incomplete 3340F PARENCHYMAL PATTERN: (D) - The breast(s) demonstrate(s) heterogeneously dense fibroglandular parenchy ma. BI-RADS CATEGORY: (0) - 0 Ultrasound [id number] Immediate follow-up LATERALITY: (B)
== END 2023-09-05 09:25 | disposition home or self-care (01) ==
LOC: DI 09:24
PROVIDERS: ATTEND Physician Assistant
DX: N63.25 Unspecified lump in the left breast, overlapping quadrants (principal); R92.333 Mammographic heterogeneous density, bilateral breasts

== ENCOUNTER 2023-09-14 13:24 | Outpatient (CLI) | payer OTHER, MEDICAID ==
[~2023-09-14 13:24] MED LIST: LIDOCAINE 1%-EPI 1:100000 20 ML MDV ONE; LIDOCAINE-MPF 1% 5 ML VIAL ONE
[2023-09-14] MEDS: LIDOCAINE 1%-EPI 1:100000 20 ML MDV SUBQ ONE (15:08)
[2023-09-14] MEDS ORDERED: LIDOCAINE-MPF 1% 5 ML VIAL SUBQ ONE (15:10)
--- NOTE | 2023-09-16 08:58 | Mammography Report ---
UNILATERAL LEFT DIGITAL DIAGNOSTIC MAMMOGRAM - LEFT BREAST POST-PROCEDURE IMAGING FOR MARKER MAYA CLINICAL: Post left breast ultrasound biopsy clip placement imaging. Comparison is made to exams dated: 09/05/2023 ultrasound and 09/05/2023 mammogram - [facility]. The left breast is heterogeneously dense, which may obscure small masses (category c / 51-75% glandul ar tissue). There is a marker clip in the appropriate position in the left breast at 9 o'clock anterior depth 6 c m from the nipple. This marker clip placement is at the biopsy site. This correlates with ultrasoun d findings and the biopsy. IMPRESSION: POST PROCEDURE MAMMOGRAM FOR MARKER PLACEMENT There was a successful marker clip placement in the left breast anterior depth. Based on the Tyrer Cuzick model (a risk assessment model) the patient's lifetime risk is 13.0% and he r 10 year risk is 1.8%. According to the ACR, ACS, and NCCN guidelines, an annual breast MRI exam bubba ng with mammogram is recommended if the patient's lifetime risk is 20% or greater. This exam was interpreted at Station ID: [id number]. NOTE: For mammograms, a report in lay terms will be sent to the patient. Approximately 15% of breast malignancies will not be visualized mammographically. In the management of a palpable breast mass, a negative mammogram must not discourage biopsy of a clinically suspicious lesion. Electronically Signed By: Juarez Viveros M.D. aty/penrad:09/15/2023 23:39:35 ACR BI-RADS Category Post-procedure mammogram for marker placement PARENCHYMAL PATTERN: (D) - The breast(s) demonstrate(s) heterogeneously dense fibroglandular jade zamudio. BI-RADS CATEGORY: () - Unspecified - other recall n/a LATERALITY: (B)
--- NOTE | 2023-09-20 10:28 | Ultrasound Report ---
ULTRASOUND GUIDED BIOPSY LEFT BREAST WITH MARKING DEVICE INSERTED: 09/14/2023 CLINICAL: Left breast mass. PATIENT CONSENT: Risks (minor bleeding, infection, vasovagal reaction and repeat procedure), benefits and alternatives were explained to the patient and written informed consent was obtained. Correlation is made to exams dated: 09/05/2023 ultrasound and 09/05/2023 mammogram - [facility]. An ultrasound guided biopsy using real-time ultrasound was performed for the 2.2 cm x 1.3 cm x 1.2 cm mass located in the left breast at 9 o'clock anterior depth 6 cm from the nipple. This was describe d on the previous mammography and ultrasound reports. The skin was prepped in the usual manner. Loc al anesthetic was administered to the access site. A skin maribel was made in the breast. The abnormal ity was approached from the lateral aspect. A 13 gauge biopsy needle was placed adjacent to the abno rmality under ultrasound guidance. Once the needle was documented to be in the correct location, fou r specimens were obtained using an automated biopsy gun. A clip was inserted into the biopsy cavity. A sterile dressing was applied to the access site. Post procedure imaging demonstrates the locatio n device at the targeted area. The specimens were sent to the laboratory for pathological analysis. IMPRESSION: ULTRASOUND GUIDED BIOPSY BENIGN Ultrasound guided biopsy of the 2.2 cm x 1.3 cm x 1.2 cm mass in the left breast at 9 o'clock anterio r depth 6 cm from the nipple was successful. Pathology revealed benign fibroadenoma, which is concordant with imaging. Recommend routine annual ma mmogram screening in 1 year. This exam was interpreted at Station ID: [id number]. Juarez Bauer M.D., Ph.D. sharon,yue/:09/20/2023 00:05:00 BI-RADS CATEGORY: () - Unspecified - other recall n/a LATERALITY: (B)
== END 2023-09-14 13:25 | disposition home or self-care (01) ==
LOC: DI 13:24
PROVIDERS: ATTEND Physician Assistant
DX: D24.2 Benign neoplasm of left breast (principal)
CPT/HCPCS: 19083

== ENCOUNTER 2023-12-12 15:38 | Outpatient (CLI) | payer OTHER, MEDICAID ==
[~2023-12-12 15:38] MED LIST changes: +GADOTERATE MEGLUMINE 10 MMOL/20 ML VIAL ONE; -LIDOCAINE 1%-EPI 1:100000 20 ML MDV ONE; -LIDOCAINE-MPF 1% 5 ML VIAL ONE
[2023-12-12] MEDS: GADOTERATE MEGLUMINE 10 MMOL/20 ML VIAL IVP ONE (16:57)
--- NOTE | 2023-12-12 18:58 | MRI Report ---
PROCEDURE: Lumbar Spine W/WO INDICATIONS: LUMBAR BACK PAIN W/RADICULOPATHY CONTRAST: 15.2ML CLARISCAN TECHNIQUE: Noncontrast sagittal T1 spin echo and T2 fast spin echo, sagittal STIR, axial T1 and T2 fast spin ech o through the lumbar spine. In cases with scoliosis, additional coronal T2 fast spin echo may be per formed. After the administration of contrast, sagittal and axial T1 spin echo with fat saturation th rough the lumbar spine. COMPARISON: 11/17/2022 FINDINGS: Image quality: Metallic Alignment and curvature: There is normal bony alignment. Marrow: Marrow is of normal overall signal. No acute vertebral body compression fractures. No susp icious marrow enhancement. Spinal cord: Conus medullaris terminates at the L1 level. Visualized spinal cord demonstrates jaron l signal, without suspicious enhancement. Paraspinous soft tissues: No paravertebral masses or abnormal enhancement. T12-L1: Normal in appearance. L1-L2: Normal in appearance. L2-L3: Moderate loss of disc height and signal are seen. Moderate disc bulge is seen at this leve l. There is a mild central disc protrusion. There is mild right-sided and mild left-sided facet hyp ertrophy. No significant neural foraminal or central canal narrowing can be seen. These imaging fi ndings are similar to the images of the prior examination. L3-L4: Normal in appearance. L4-L5: Moderate loss of disc height and signal are seen. Moderate disc bulge is seen at this level . A superimposed central disc protrusion is seen. Moderate to prominent facet hypertrophy can be s een. There is minimal right-sided and no left-sided neuroforaminal narrowing. These imaging finding s are similar to the images of the prior examination. Mild central canal narrowing is seen. L5-S1: Postoperative changes are seen at this level, with bilateral pedicle screws and vertical fix ation rods. There is a disc spacer seen. There has been removal of portions of the posterior elements . No neural foraminal narrowing or central canal narrowing can be seen. S1-S2: There is a transitional, rudimentary disc. IMPRESSION: Stable postoperative study, with L5-S1 postoperative hardware. Mild degenerative changes are seen, which are worst at the L4-L5 level. Additional findings: Transitional lumbar anatomy, with a rudimentary disc at S1-S2 Reviewed by: Abdiaziz Cardenas MD on 12/12/2023 5:56 PM AKDT Approved by: Abdiaziz Cardenas MD on 12/12/2023 5:56 PM GABE Station ID: [id number]
== END 2023-12-12 15:39 | disposition home or self-care (01) ==
LOC: DI 15:38
PROVIDERS: ATTEND Physician Assistant
DX: M47.26 Other spondylosis with radiculopathy, lumbar region (principal); M51.16 Intervertebral disc disorders with radiculopathy, lumbar region
CPT/HCPCS: 72158; A9575